=== PATIENT | male | born 1980 | race Caucasian/White ===

== ENCOUNTER 2019-05-03 08:42 | Emergency (ER) | payer SELFPAY ==
[~2019-05-03] VITALS: Ht 170.2 cm; Wt 112.0 kg
[~2019-05-03 08:42] MED LIST: BISA-57 PO; CIPR500T4 PO
[2019-05-03 08:45] VITALS: Ht 170.2 cm; Wt 112.0 kg
[2019-05-03] MEDS ORDERED: CEFTRIAXONE 1 GM INJ IM ONE (10:30)
[2019-05-03] MEDS ORDERED: BISACODYL (EC) 5 MG TAB PO ONE (10:30)
[2019-05-03] MEDS ORDERED: AZITHROMYCIN 500 MG TAB PO ONE (10:30)
[2019-05-03 11:25] VITALS: BP 129/75; PULSE 78; RESP 18
--- NOTE | 2019-05-05 05:54 | ERD ---
ER Documentation Chief Complaint Chief Complaint RIGHT AND LEFT QUADRANT PAIN, BLOOD IN THE URINE; CANT DEFECATE X6 DAYS HPI 38-year-old male presenting with bilateral lower abdominal pain for the past few days. He has had constipation for the past 6 days but is able to pass gas. No associated nausea, vomiting, fever or chills. He did have hematuria earlier yesterday but not today. He denies any significant dysuria. He was recently sexually active without protection and is worried about an STD. ROS All systems reviewed and are negative except as per history of present illness. Medications Home Meds Active Scripts Bisacodyl* (Dulcolax*) 5 Mg Tablet.dr, 10 MG PO DAILY PRN for CONSTIPATION, #10 TAB Prov:TONG KILLIAN MD 05/03/19 Ciprofloxacin Hcl* (Ciprofloxacin Hcl*) 500 Mg Tablet, 500 MG PO BID for 7 Days, TAB Prov:TONG KILLIAN MD 05/03/19 Allergies Allergies: Coded Allergies: No Known Allergy (Unverified , 05/03/19) PMhx/Soc Medical and Surgical Hx: pt denies Medical Hx, pt denies Surgical Hx History of Surgery: No Hx Alcohol Use: Yes Hx Substance Use: No Hx Tobacco Use: No Smoking Status: Never smoker Physical Exam Vitals Vital Signs Date Temp Pulse Resp B/P (MAP) Pulse Ox O2 O2 Flow FiO2 Time Delivery Rate 05/03/19 98.1 78 18 129/75 98 Room Air 11:25 (93) 05/03/19 97.4 68 24 133/77 96 08:45 (95) Physical Exam Const: No acute distress Head: Atraumatic Eyes: Normal Conjunctiva ENT: Normal External Ears, Nose and Mouth. Neck: Full range of motion. No meningismus. Resp: Clear to auscultation bilaterally Cardio: Regular rate and rhythm, no murmurs Abd: Soft, non tender, non distended. Normal bowel sounds Skin: No petechiae or rashes Back: No midline or flank tenderness Ext: No cyanosis, or edema Neur: Awake and alert Psych: Normal Mood and Affect Results 24 hrs Laboratory Tests Test 05/03/19 09:25 05/03/19 10:17 Urine Color YELLOW Urine Clarity TURBID Urine pH 5.0 Urine Specific [place] 1.027 Urine Ketones NEGATIVE mg/dL Urine Nitrite NEGATIVE mg/dL Urine Bilirubin NEGATIVE mg/dL Urine Urobilinogen NEGATIVE mg/dL Urine Leukocyte Esterase NEGATIVE [place]/ul Urine Microscopic RBC > 182 /HPF Urine Microscopic WBC 48 /HPF Urine Bacteria MODERATE /HPF Urine Mucus MANY /HPF Urine Hemoglobin 3+ mg/dL Urine Glucose NEGATIVE mg/dL Urine Total Protein 1+ mg/dl Chlamydia trachomatis RNA (TMA) NOT DETECTED Chlamydia/GC Comment SEE NOTE Neisseria gonorrhoeae RNA (TMA) NOT DETECTED Bedside Glucose 160 mg/dL Current Medications Medications Dose Sig/Denise Start Time Status Last (Trade) Ordered Route PRN Stop Time Admin Dose Reason Admin Ceftriaxone 1 gm ONCE ONCE 05/03/19 DC 05/03/19 Sodium IM 10:30 10:25 (Rocephin) 05/03/19 10:31 1,000 mg ONCE ONCE 05/03/19 DC 05/03/19 Azithromycin PO 10:30 10:26 (Zithromax) 05/03/19 10:31 Bisacodyl 10 mg ONCE ONCE 05/03/19 DC 05/03/19 (Dulcolax) PO 10:30 10:26 05/03/19 10:31 Procedures/MDM EMERGENT LABS AND DIAGNOSTIC STUDIES: Lab Results above were reviewed and interpreted by me. UA: Abnormalities with possible evidence of infection GC and chlamydia pending Initial Nursing notes reviewed. Previous Medical Records requested via the Electronic Health Record. EMERGENCY DEPARTMENT COURSE / MEDICAL DECISION MAKING: Patient is presenting with likely constipation but I doubt acute surgical abdomen. He also has urinary symptoms, concerning for possible infection. He opted for prophylactic treatment for STD and did not want to wait for the results to come back. I suspect he likely has a UTI as well. Recommended treatment for UTI with outpatient antibiotic as well. Patient is agreeable with this plan. Prescription for laxatives given. Return precautions discussed Patient's blood pressure was elevated (>120/80) but appears stable without evidence of hypertensive emergency or urgency. The patient was counseled about the risks of hypertension and urged to pursue outpatient monitoring and therapy within a week with their primary care physician. Departure Diagnosis: Primary Impression: Abdominal pain Abdominal location: lower abdomen, unspecified Qualified Codes: R10.30 - Lower abdominal pain, unspecified Additional Impressions: Hematuria Hematuria type: unspecified type Qualified Codes: R31.9 - Hematuria, unspecified Constipated Constipation type: unspecified constipation type Qualified Codes: K59.00 - Constipation, unspecified Condition: Stable Patient Instructions: Abdominal Pain, Constipation (Adult), Hematuria Additional Instructions: Call your primary care doctor TOMORROW for an appointment during the next 1-2 days.See the doctor sooner or return here if your condition worsens before your appointment time. TONG KILLIAN MD May 05, 2019 05:54
== END 2019-05-03 11:27 | disposition home or self-care (01) ==
LOC: E/R 08:42
DX: K59.00 Constipation, unspecified (principal); R31.9 Hematuria, unspecified; R40.2142 Coma scale, eyes open, spontaneous, at arrival to emergency department; R40.2362 Coma scale, best motor response, obeys commands, at arrival to emergency department
CPT/HCPCS: 36415; 81001; 82962; 87086; 87591; 96372; 99284; J0696